=== PATIENT | female | born 1955 | race Caucasian/White ===

== ENCOUNTER 2017-01-11 09:08 | Emergency (ER) | payer OTHER ==
[2017-01-11 10:12] VITALS: BP 122/72
--- NOTE | 2017-01-11 10:49 | UC ---
Throat Pain/Nasal Alfonso HPI - HPI Summary HPI Summary: FIVE DAYS OF SINUS CONGESTION FACIAL PRESSURE, COUGH FATIGUE CHILLS - History of Current Complaint Chief Complaint: UCRespiratory Stated Complaint: CONGESTION CHILLS Time Seen by Provider: 01/11/17 10:29 Hx Obtained From: Patient Hx Last Menstrual Period: n /a Onset/Duration: Gradual Onset, Lasting Days, Worse Since - PROGRESSIVE Severity: Moderate Cough: Productive Associated Signs & Symptoms: Positive: Hoarseness, Sinus Discomfort, Nasal Discharge, Fever - Epiglottits Risk Factors Epiglottis Risk Factors: Negative - Allergies/Home Medications Allergies/Adverse Reactions: Allergies Allergy/AdvReac Type Severity Reaction Status Date / Time Cephalexin [From Keflex] Allergy Rash Verified 01/11/17 10:00 Home Medications: Home Medications Aspirin [Aspirin 81 MG TAB] 81 mg PO DAILY 01/11/17 [History Confirmed 01/11/17] Dextromethorphan-Phenylephrine [Robitussin Cold+Flu Dayti] 1 cap PO PRN [History] Fanlxjzicrxkb-Gw-SZ W/ APAP [Delsym Cough + Cold D... 3-42-199-325 mg/10Ml] 1 liq PO Q4H PRN 01/11/17 [History Confirmed 01/11/17] PMH/Surg Hx/FS Hx/Imm Hx Previously Healthy: Yes Cardiovascular History Of: Reports: Hypertension Cancer History Of: Denies: Breast Cancer - Surgical History Surgical History: Yes Surgery Procedure, Year, and Place: TONSILECTOMY, ABLASION TREATMENT TO BOTH LEGS, HERNIA REPAIR, LUMPECTOMY RT BREAST, HYSTERECTOMY, 2 C-SECTIONS. knee replacement 2014 - Family History Known Family History: Positive: Respiratory Disease - PARENTS SMOKERS, Other - MOTHER ESOPHAGEAL CANCER - Social History Occupation: Employed Full-time Lives: With Family Alcohol Use: None Substance Use Type: None Smoking Status (MU): Former Smoker When Did the Patient Quit Smoking/Using Tobacco: 2004 - Immunization History Most Recent Influenza Vaccination: 2016-fall Most Recent Tetanus Shot: unknown Review of Systems Constitutional: Chills, Fatigue Skin: Negative Eyes: Negative ENT: Sore Throat, Nasal Discharge Respiratory: Cough Cardiovascular: Negative Gastrointestinal: Negative Genitourinary: Negative Motor: Negative Neurovascular: Negative Musculoskeletal: Negative Neurological: Negative Psychological: Negative All Other Systems Reviewed And Are Negative: Yes Physical Exam Triage Information Reviewed: Yes Appearance: Well-Appearing, No Pain Distress, Well-Nourished Vital Signs: Initial Vital Signs Temp 98.8 F 01/11/17 10:03 Pulse 60 01/11/17 10:03 Resp 16 01/11/17 10:03 BP 122/72 01/11/17 10:03 Pulse Ox 99 01/11/17 10:03 Vital Signs Reviewed: Yes Eye Exam: Normal ENT: Positive: Hearing grossly normal, Pharynx normal, Nasal congestion, TM bulging, TM dull Dental Exam: Normal Neck exam: Normal Neck: Positive: Supple, Nontender Respiratory Exam: Other - COUGH Respiratory: Positive: Chest non-tender, Lungs clear, Normal breath sounds, No respiratory distress, No accessory muscle use Cardiovascular Exam: Normal Cardiovascular: Positive: RRR, No Murmur, Pulses Normal, Brisk Capillary Refill Abdominal Exam: Normal Abdomen Description: Positive: Nontender, No Organomegaly Musculoskeletal Exam: Normal Musculoskeletal: Positive: Strength Intact, ROM Intact Neurological Exam: Normal Psychological Exam: Normal Psychological: Positive: Normal Response To Family Skin Exam: Normal Throat Pain/Nasal Course/Dx - Course Course Of Treatment: TERI HAS TAKEN AMOXICILLIN WITHOUT ANY REACTIONS IN PAST - Differential Dx/Diagnosis Differential Diagnosis/HQI/PQRI: Otitis Media, Pharyngitis, Sinusitis, Tonsillitis, URI Provider Diagnoses: SINUSITIS Discharge - Discharge Plan Condition: Stable Disposition: HOME Prescriptions: Amoxicillin/Clavulanate TAB* [Augmentin TAB 875*] 875 mg PO BID #20 tab Benzonatate CAP* [Tessalon 100 MG CAP*] 100 mg PO TID PRN #15 cap PRN Reason: Cough Fluconazole [Diflucan 150 MG (NF)] 150 mg PO ONCE #1 tab Patient Education Materials: Sinusitis (ED) Forms: *Work Release Referrals: Monica Young MD [Primary Care Provider] -
== END 2017-01-11 10:51 | disposition home or self-care (01) ==
LOC: UCCORT 09:08
DX: J32.9 Chronic sinusitis, unspecified (principal); I10 Essential (primary) hypertension; Z88.1 Allergy status to other antibiotic agents; Z96.659 Presence of unspecified artificial knee joint; Z87.891 Personal history of nicotine dependence
CPT/HCPCS: 99212; G0463

== ENCOUNTER 2017-11-11 10:34 | Emergency (ER) | payer BC, OTHER ==
[2017-11-11 13:45] VITALS: BP 136/72
--- NOTE | 2017-11-11 14:12 | UC ---
FLU HPI - HPI Summary HPI Summary: Pt c/o sudden onset of fever, chills, malaise, cough, SOB with exertion X 2 days. - History of Current Complaint Chief Complaint: UCGeneralIllness Stated Complaint: FLU SYMPTOMS Time Seen by Provider: 11/11/17 13:29 Hx Obtained From: Patient Hx Last Menstrual Period: n /a ?: No Onset/Duration: Sudden Onset, Lasting Days, Still Present Severity Currently: Mild Severity Initially: Moderate Pain Intensity: 9 Associated Signs & Symptoms: Positive: Fever, Myalgia, Cough, Nasal Congestion Related Hx: Possible Flu/Infectious Exposure - Allergy/Home Medications Allergies/Adverse Reactions: Allergies Allergy/AdvReac Type Severity Reaction Status Date / Time MS Cephalexin [From Keflex] Allergy Rash Verified 11/11/17 13:41 Home Medications: Home Medications Rheumatoid Arthritis Medicatio 1 tab BID 11/11/17 [History Confirmed 11/11/17] PMH/Surg Hx/FS Hx/Imm Hx Previously Healthy: Yes Cardiovascular History: Cardiac Disease - Surgical History Surgical History: Yes Surgery Procedure, Year, and Place: TONSILECTOMY, ABLASION TREATMENT TO BOTH LEGS, HERNIA REPAIR, LUMPECTOMY RT BREAST, HYSTERECTOMY, 2 C-SECTIONS. knee replacement 2014 - Family History Known Family History: Positive: Respiratory Disease - PARENTS SMOKERS, Other - MOTHER ESOPHAGEAL CANCER - Social History Occupation: Retired Lives: With Family Alcohol Use: None Substance Use Type: None Smoking Status (MU): Former Smoker Have You Smoked in the Last Year: No - history of smoking for decades When Did the Patient Quit Smoking/Using Tobacco: 2004 - Immunization History Most Recent Influenza Vaccination: 2016-fall Most Recent Tetanus Shot: unknown Review of Systems Constitutional: Fever, Chills, Fatigue Skin: Negative Eyes: Negative ENT: Sore Throat Respiratory: Shortness Of Breath, Cough Cardiovascular: Negative Gastrointestinal: Negative Genitourinary: Negative Motor: Negative Neurovascular: Negative Musculoskeletal: Myalgia Neurological: Negative Psychological: Negative Is Patient Immunocompromised?: No All Other Systems Reviewed And Are Negative: Yes Physical Exam Triage Information Reviewed: Yes Appearance: Ill-Appearing Vital Signs: Initial Vital Signs Temp 98.7 F 11/11/17 13:36 Pulse 72 11/11/17 13:36 Resp 17 11/11/17 13:36 BP 136/72 11/11/17 13:36 Pulse Ox 96 11/11/17 13:36 Vital Signs Reviewed: Yes Eye Exam: Normal ENT Exam: Other ENT: Positive: Nasal congestion Dental Exam: Normal Neck exam: Normal Respiratory Exam: Other Respiratory: Positive: Decreased breath sounds Cardiovascular Exam: Normal Musculoskeletal Exam: Normal Neurological Exam: Normal Psychological Exam: Normal Skin Exam: Normal Diagnostics - Laboratory Diagnostic Studies Completed/Ordered: rapid flu influenza B positive Flu Course/Dx - Differential Dx/Diagnosis Differential Diagnosis/HQI/PQRI: Bronchitis, Influenza, Pneumonia Provider Diagnoses: INfluenza B. Pneumonia Discharge - Discharge Plan Condition: Stable Disposition: HOME Prescriptions: Azithromycin TAB* [Zithromax TAB (Z-TEA) 250 mg #6 tabs] 2 tab PO .TODAY, THEN 1 DAILY #1 tea Benzonatate CAP* [Tessalon 100 MG CAP*] 100 mg PO Q8H PRN #30 cap PRN Reason: Cough methylPREDNISolone TAB* [Medrol TAB*] 4 - 8 mg PO .SEE TEA #1 tea Oseltamivir CAP* [Tamiflu CAP*] 75 mg PO Q12H #10 cap Patient Education Materials: Influenza (ED), Pneumonia (ED) Forms: *Work Release Referrals: Monica Young MD [Primary Care Provider] - If Needed
== END 2017-11-11 14:22 | disposition home or self-care (01) ==
LOC: UCCORT 10:34
DX: J10.1 Influenza due to other identified influenza virus with other respiratory manifestations (principal); J18.9 Pneumonia, unspecified organism; Z87.891 Personal history of nicotine dependence
CPT/HCPCS: 87502; 99212; G0463

== ENCOUNTER 2018-05-17 09:46 | Emergency (ER) | payer BC ==
--- OUTSIDE RECORDS SUMMARY | 2018-05-17 10:22 | XMS REPORT ---
:1955 External Reference #:[id number] Author Organization [facility] Address [address], [address] [place] [address] Phone [phone] Care Team Providers Name Role Phone Monica Young MD Care Team Information Carbon Cleaner Unavailable Monica Young MD Primary Care Physician Unavailable Payers Type Date Identification Numbers Payment Provider Subscriber Commercial Policy Number: [id number] [facility] Becca Duffy PayID: [id number] [address] [address] [place] [address] Commercial Expires: 2017 Policy Number: [place] Medicaid Becca Duffy [id number] PayID: [id number] [address] [place] [address] Problems Date Description Provider Status Onset: 05/19/2015 Mixed hyperlipidemia Monica Young MD Active Onset: 05/19/2015 Rheumatoid arthritis Monica Young MD Active Onset: 05/19/2015 Benign essential hypertension Monica Young MD Active Onset: 08/05/2015 Essential hypertension Monica Young MD Resolved Resolved: 12/24/2015 Onset: 08/05/2015 Hyperlipidemia screening Monica Young MD Resolved Resolved: 12/24/2015 Family History Date Family Member(s) Problem(s) Comments Father due to lymphoma () Father Alcoholism Mother due to Esophagus Cancer () Mother Alcoholism Children 2 First Daughter Drug Addiction Second Daughter Alcoholism Siblings 1 Social History Type Date Description Comments Marital Status Single Lives With Significant Other 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 Cigarette Use Former Cigarette Smoker 3/4 ppd x 35 yrs, quit at age 45 ETOH Use Denies alcohol use Smoking Patient is a former smoker Allergies, Adverse Reactions, Alerts Date Description Reaction Status Severity Comments 05/19/2015 Keflex active Medications Medication Date Status Form Strength Qnty SIG Indications Ordering Provider Prednisolone 04/01 Active Suspension 1% 5ml 1 drop H25.813 Chintan De La O Acetate /2017 left eye four times daily for four weeks; please begin after surgery Aleve 04/25 Active Tablets 220mg 1 by [facility] mouth Clune, MARINE MECHANIC every day as needed Proair HFA 12/23 Active Aerosol 108(90Bas 17gm inhale R05 [facility] e) two Clune, MARINE MECHANIC mcg/Act puffs by mouth every 4 hours as needed Calcium + D3 08/05 Active Tablets 600-200mg 2 po qd -Unit MD Hector Vitamin D3 Super 08/05 Active Tablets 2000Unit 1 by /2014 mouth MD Hector every day One Daily For 08/05 Active Tablets 1 po qd MD Hector Amlodipine 08/05 Active Tablets 10mg 30tab Take One Besylate s Tablet MD Hector By Mouth Every Day Lisinopril 03/26 Active Tablets 20mg 30tab Take One s Tablet MD Hector By Mouth Every Day Xeljanz Active Tablets 5mg Tobar, /0000 Alvaro Calcitonin Active Solution 200Unit/A instill Unknown ([place]) /0000 ct 1 spray in alternat ing nostrils daily *refrige rate until usedis card & replace 35 days after opening Turmeric Active Capsules 450mg 1200mg Unknown /0000 daily Ofloxacin 04/01 Hx Solution 0.3% 1unit 1 drop H25.813 Chintan De La O (Ophthalmic) /2017 s left eye MD Clotilde oneal 04/23 times daily for 10 days beginnin g three days before surgery Diclofenac 04/01 Hx Solution 0.1% 1unit 1 drop H25.813 Chintan De La O Sodium /2017 s left eye MD Clotilde oneal 04/23 times daily for 2 weeks beginnin g three days before operatio n Ketorolac 04/01 Hx Solution 0.5% 5ml 1 drop H25.813 Chintan De La O Tromethamine /2017 left eye - 4 times 04/23 daily for 2 weeks; please begin 3 days prior to operatio n Azithromycin 11/11 Hx Tablets 250mg Ben-Haity /2017 , Connie Gil, FINANCIAL COMPLIANCE OFFICER - 11/16 Benzonatate 11/11 Hx Capsules 100mg Contreras-Haity /2017 , Connie Gil, FINANCIAL COMPLIANCE OFFICER - 11/21 Methylprednisolo 11/11 Hx TBPK 4mg Contreras-Gugerty ne , Connie Gil, FINANCIAL COMPLIANCE OFFICER - 11/16 Oseltamivir 11/11 Hx Capsules 75mg Contreras-Ling Phosphate , Connie Gil, FINANCIAL COMPLIANCE OFFICER - 11/16 Mucinex 12/23 Hx Tablets ER 600mg 60tab one tab J06.9 12HR s by mouth HEATHER Ternt - twice a 04/25 day needed nasal stuffine ss Miacalcin 05/05 Hx Solution 200Unit/A 11.1u Use 1 ct nits Mcnary In MD Hector - Alternat 02/15 Nostrils Once Daily Omeprazole 03/26 Hx Capsules 20mg 90cap Take One DR jelly Hart M.D. - By Mouth 02/15 Day Meloxicam Hx Tablets 15mg 1 by Unknown /0000 mouth - every 12/23 day food Sulfasalazine Hx Tablets DR 500mg 1 po bid Unknown /0000 - 07/20 Furosemide Hx Tablets 20mg 1 by Unknown /0000 mouth - every Aspirin Adult Hx Tablets DR 81mg 1 by Unknown Low Dose /0000 mouth - every Amlodipine Hx Tablets 5mg 90tab 1 by Monica Beskitty /0000 s mouth MD Hector - every Medications Administered in Office Medication Date Status Form Strength Qnty SIG Indications Ordering Provider PPD 04/25/ Administered Injection HEATHER Wang PPD 05/19/ Administered Injection Fanta Damian MD Immunizations CPT Code Status Date Vaccine Lot # [id number] Given 07/20/2017 Tdap injection [id number] 36671 Given 07/20/2017 Influenza Virus Vaccine, Quadrivalent, Slit Virus, [id number] Im Use 35498 Given 08/16/2016 Influenza Virus Vaccine Split Virus Use For Individual 3Yr Older [id number] Given 08/05/2015 Influenza Vaccine (Fluzone) Age 3 And Older [id number] Vital Signs Date Vital Result Comment 11/20/2017 BP Systolic 108 mmHg BP Diastolic 78 mmHg Body Temperature 97.8 F Heart Rate 79 /min Respiratory Rate 17 /min Height 60 inches 5'0" Weight 177.12 lb BMI (Body Mass Index) 34.6 kg/m2 BSA (Body Surface Area) 1.77 m2 [place] body weight in kilograms 45 O2 % BldC Oximetry 98 % 11/15/2017 BP Systolic Sitting Left Arm 124 mmHg BP Diastolic Sitting Left Arm 74 mmHg Body Temperature 98.5 F Heart Rate 68 /min Respiratory Rate 20 /min Height 60 inches 5'0" Weight 176.38 lb BMI (Body Mass Index) 34.4 kg/m2 BSA (Body Surface Area) 1.77 m2 [place] body weight in kilograms 45 O2 % BldC Oximetry 97 % 07/20/2017 BP Systolic Sitting Left Arm 122 mmHg BP Diastolic Sitting Left Arm 72 mmHg Heart Rate 78 /min Respiratory Rate 18 /min Height 60 inches 5'0" Weight 176.00 lb BMI (Body Mass Index) 34.4 kg/m2 BSA (Body Surface Area) 1.77 m2 [place] body weight in kilograms 45 04/25/2017 BP Systolic 108 mmHg BP Diastolic 60 mmHg Height 60 inches 5'0" Weight 174.00 lb BMI (Body Mass Index) 34.0 kg/m2 BSA (Body Surface Area) 1.76 m2 [place] body weight in kilograms 45 12/24/2015 BP Systolic 102 mmHg BP Diastolic 68 mmHg Body Temperature 98.6 F Heart Rate 76 /min Respiratory Rate 18 /min Weight 163.00 lb 08/05/2015 BP Systolic 112 mmHg BP Diastolic 68 mmHg Heart Rate 60 /min Respiratory Rate 20 /min Height 60 inches 5'0" Weight 161.12 lb BMI (Body Mass Index) 31.5 kg/m2 BSA (Body Surface Area) 1.70 m2 05/19/2015 BP Systolic 120 mmHg BP Diastolic 60 mmHg Heart Rate 88 /min Respiratory Rate 20 /min Height 61 inches 5'1" Weight 155.50 lb BMI (Body Mass Index) 29.4 kg/m2 BSA (Body Surface Area) 1.70 m2 Results Test Date Test Result H/L Range Note Rapid Influenza A & B 11/11/2017 Influenza A Molecular NEGATIVE Negative 1 Molecular Influenza B Molecular POSITIVE Negative CBC + Diff, Plat Count 10/30/2017 WBC Num Bld Auto 6.8 10*3/uL 4-10 RBC Num Bld Auto 4.07 10*6/uL Low 4.1-5.3 Hgb Bld-mCnc 12.6 g/dL 11.5-15.5 Hct VFr Bld Auto 37.2 % 36-45 MCV RBC Auto 91.5 fL 80-96 MCH RBC Qn Auto 31.1 pg 27-33 MCHC RBC Auto-mCnc 34.0 g/dL 32.0-36.0 RDW RBC Auto-Rto 13.3 % 11.5-14.5 Platelet Num Bld Auto 348 10*3/uL 150-400 Differential method Bld Automated Diff Neutrophils/leuk NFr Bld Auto 63 % 33-73 Lymphocytes/leuk NFr Bld Auto 24 % 13-52 Monocytes/leuk NFr Bld Auto 9 % 0-11 Eosinophil/leuk NFr Bld Auto 3 % 0-5 Basophils/leuk NFr Bld Auto 1 % 0-2 Neutrophils Num Bld Auto 4.38 10*3/uL 1.8-7.0 Lymphocytes Num Bld Auto 1.61 10*3/uL 1.2-4.0 Monocytes Num Bld Auto 0.63 10*3/uL 0-0.8 Eosinophil Num Bld Auto 0.19 10*3/uL 0-0.5 Basophils Num Bld Auto 0.04 10*3/uL 0-0.2 nRBC/100 WBC Bld Auto-Rto 0 /100{WBCs} 0-0 Laboratory test finding 10/30/2017 Alt/SGP 20 U/L <31 Ast/Sgo 22 U/L <32 Creatinine W/GFR 10/30/2017 Creat SerPl-mCnc 0.66 mg/dL 0.4-1.1 GFR/Bsa pred.non black SerPl MDRD-ArVRat >90 mL/min/1.73m2 >60 GFR/Bsa pred.black SerPl MDRD-ArVRat >90 mL/min/1.73m2 >60 Laboratory test finding 10/30/2017 Sed Rate - Esr 37 mm/hr High <30 Laboratory test finding 08/05/2015 Fit Hemoccult negative 1 Sales Development Specialist: [id number] Procedures Date CPT Code Description Status Comment 04/10/2018 26489 Extracapsular Cataract Completed Extraction W/Intraocular Lens 04/01/2018 40373 Ophthalmic Biometry By Partial Completed Coherence Interferometry W/Intra 02/14/2018 20257 Eye Exam New Patient Completed Comprehensive 05/24/2017 Mammogram Completed 04/25/2017 22250 Theraputic Or Diagnostic Completed Injection 09/08/2016 Colonoscopy Completed Document: 07/10/16 - Consult Gastrointestinal/Syam Document: 09/08/16 - Pathology/Biopsy Result 03/14/2016 Mammogram Completed 03/09/2015 Mammogram Completed 10/01/2013 Bone Mineral Density Test Completed 04/11/2011 20062 EKG Interpretation And Report Completed Only 06/05/2008 60601 Cardiolite Stress/Rest Spect Completed 06/05/2008 97258 Myocardial Wall Motion Completed 06/05/2008 94915 Ejection Fraction Completed 06/05/2008 01901 Stress Test Interpre And Report Completed Only 05/20/2008 54447 EKG-Tracing And Report Completed 09/02/2003 98240 Finance Charge Completed 03/02/2003 43865 Destruct-Skin Completed Tags/Lesions-Local Anesthesia- 2-14 Lesions 03/02/2003 24122 Destruct-Skin Completed Tags/Lesions-Local Anesthesia - First Lesion 02/10/2003 32883 Destruct-Skin Completed Tags/Lesions-Local Anesthesia- 2-14 Lesions 02/10/2003 85675 Destruct-Skin Completed Tags/Lesions-Local Anesthesia - First Lesion 06/10/2001 64231 Destruct-Skin Completed Tags/Lesions-Local Anesthesia - First Lesion Encounters Type Date Location Provider CPT E/M Dx Office Visit 11/20/2017 Family Medicine MINERVA Rodríguez 82148 Z09 9:45a Office Visit 11/15/2017 [facility] HEATHER Segov[place] 84719 J11.1 2:45p Office Visit 07/20/2017 HEATHER Gonzalez 47021 Z01.419 9:00a Z23 K42.9 L30.9 Office Visit 04/27/2017 2:30p [facility] HEATHER [place] 85925 Z11.1 Office Visit 04/25/2017 4:00p [facility] HEATHER [place] 01228 Z02.1 Z11.1 I10 Office Visit 12/24/2015 10:45a Family Medicine Kevyn Trent [facility] 81638 J06.9 R05 Office Visit 08/05/2015 3:00p [place] [address] Z00.00 I10 M05.79 Z13.220 Z23 Office Visit 05/21/2015 1:00p [place] [address] V74.1 Office Visit 05/19/2015 1:00p [place] [address] 714.0 401.1 V74.1 Office Visit 05/20/2008 1:30p Cardiology Office Christopher Aceves, [address]25 786.59 [place], [facility] 786.05 401.1 Plan of Care Future Appointment(s):05/09/2018 3:45 pm - Chintan De La O MD at Ophthalmology
[2018-05-17 10:35] VITALS: BP 114/68
--- NOTE | 2018-05-17 10:56 | UC ---
Ear Complaint HPI - HPI Summary HPI Summary: Pt presents with c/o gradual onset right ear pain and right sinus discomfort and nasal congestion. Pt reports right ear pain is intermittnet, nasal congestion constant and pressure and pain in right maxillary sinus is worsening X 1 week. - History of Current Complaint Chief Complaint: UCEar Stated Complaint: EAR PAIN Time Seen by Provider: 05/17/18 10:41 Hx Obtained From: Patient Hx Last Menstrual Period: n /a ?: No Onset/Duration: Gradual Onset, Lasting Weeks Severity Initially: Mild Severity Currently: Moderate Pain Intensity: 9 Alleviating Factors: Nothing Associated Signs/Symptoms: Positive: URI Symptoms Related History: Seasonal Allergies - Allergies/Home Medications Allergies/Adverse Reactions: Allergies Allergy/AdvReac Type Severity Reaction Status Date / Time cephalexin Allergy Rash Verified 05/17/18 10:28 Home Medications: Home Medications Ibuprofen TAB* [Advil TAB*] 400 mg PO Q6H PRN 05/17/18 [History Confirmed ] Methotrexate TAB* 4 tab PO WEEKLY 05/17/18 [History Confirmed 05/17/18] PMH/Surg Hx/FS Hx/Imm Hx Previously Healthy: Yes - Surgical History Surgical History: Yes Surgery Procedure, Year, and Place: TONSILECTOMY, ABLASION TREATMENT TO BOTH LEGS, HERNIA REPAIR, LUMPECTOMY RT BREAST, HYSTERECTOMY, 2 C-SECTIONS. knee replacement 2014. ganlion cyst left hand - Family History Known Family History: Positive: Respiratory Disease - PARENTS SMOKERS, Other - MOTHER ESOPHAGEAL CANCER - Social History Occupation: Retired Lives: With Family Alcohol Use: None Substance Use Type: None Smoking Status (MU): Former Smoker Have You Smoked in the Last Year: No - history of smoking for decades When Did the Patient Quit Smoking/Using Tobacco: 2004 - Immunization History Most Recent Influenza Vaccination: 2016-fall Most Recent Tetanus Shot: unknown Review of Systems Constitutional: Fatigue Skin: Negative Eyes: Negative ENT: Ear Ache, Sinus Congestion, Sinus Pain/Tenderness Respiratory: Cough Cardiovascular: Negative Gastrointestinal: Negative Genitourinary: Negative Motor: Negative Neurovascular: Negative Musculoskeletal: Negative Neurological: Negative Psychological: Negative Is Patient Immunocompromised?: No All Other Systems Reviewed And Are Negative: Yes Physical Exam Triage Information Reviewed: Yes Appearance: Well-Appearing Vital Signs: Initial Vital Signs Temp 98.3 F 05/17/18 10:21 Pulse 65 05/17/18 10:21 Resp 15 05/17/18 10:21 BP 114/68 05/17/18 10:21 Pulse Ox 98 05/17/18 10:21 Vital Signs Reviewed: Yes Eye Exam: Normal ENT: Positive: Nasal congestion, TM bulging - bilateral, Sinus tenderness - right maxillary Dental Exam: Normal Neck exam: Normal Respiratory: Positive: No respiratory distress Musculoskeletal Exam: Normal Neurological Exam: Normal Psychological Exam: Normal Skin Exam: Normal Ear Complaint Course/Dx - Differential Dx/Diagnosis Differential Diagnosis/HQI/PQRI: Otitis Media, URI, Other - allergic rhinitis Provider Diagnoses: allergic rhinitis. sinusitis Discharge - Sign-Out/Discharge Documenting (check all that apply): Patient Departure - Discharge Plan Condition: Stable Disposition: HOME Prescriptions: Azithromycin TAB* [Zithromax TAB (Z-TEA) 250 mg #6 tabs] 2 tab PO .TODAY, THEN 1 DAILY #1 tea Cetirizine* [ZyrTEC 10 MG TAB*] 10 mg PO DAILY #10 tab Chlorpheniramine/Dextromethorp [Coricidin Hbp Cough & Cold Tab] 1 each PO SEE INSTRUCTIONS #15 tablet Patient Education Materials: Sinusitis (ED), Allergic Rhinitis (ED) Referrals: Monica Young MD [Primary Care Provider] - If Needed - Billing Disposition and Condition Condition: STABLE Disposition: Home
== END 2018-05-17 11:10 | disposition home or self-care (01) ==
LOC: UCCORT 09:46
DX: J30.9 Allergic rhinitis, unspecified (principal); J32.9 Chronic sinusitis, unspecified; Z88.1 Allergy status to other antibiotic agents; Z87.891 Personal history of nicotine dependence
CPT/HCPCS: 99212; G0463

== ENCOUNTER 2018-09-26 12:35 | Emergency (ER) | payer BC ==
--- OUTSIDE RECORDS SUMMARY | 2018-09-26 13:42 | XMS REPORT ---
:1955 External Reference #:[id number] Author Organization [facility] Address [address], [address] [place] [address] Phone [phone] Care Team Providers Name Role Phone Monica Young MD Care Team Information Web Services Manager Unavailable Monica Young MD Primary Care Physician Unavailable Payers Type Date Identification Payment Provider Subscriber Numbers Workers Compensation Onset: Policy Number: [facility] Becca Lay 08/26/2018 [id number] Insurance Fund [place] PayID: [id number] [place] [id number] Medigap Part B Policy Number: [id number] [facility] Becca Duffy PayID: [id number] [address] [address] [place] [address] Commercial Expires: 09/30/2017 Policy Number: [employer] Becca Duffy [id number] PayID: [id number] [address] [place] [address] Problems Date Description Provider Status Onset: 05/19/2015 [...] Status Single Lives With Significant Other Occupation [employer] Cigarette Use Former Cigarette Smoker 3/4 ppd x 35 yrs, quit at age 45 ETOH Use Denies alcohol use Smoking Patient is a former smoker Allergies, Adverse Reactions, Alerts Date Description Reaction Status Severity Comments 05/19/2015 Keflex active Medications Medication Date Status Form Strength Qnty SIG Indications Ordering Provider Proair HFA 12/23 Active Aerosol 108(90Bas 17gm inhale two R05 Clune, /2015 e) puffs by Jenniferino mcg/Act mouth eigh, [employer] every 4 hours as needed Calcium + D3 08/05 Active Tablets 600-200mg 2 po qd Hector, -Unit MD Monica Vitamin D3 Super 08/05 Active Tablets 2000Unit 1 by mouth Hector every day MD Monica One Daily For 08/05 Active Tablets 1 po qd Hector, MD Monica Amlodipine 08/05 Active Tablets 10mg 30tab Take One Hector Besylate s Tablet By MD Monica Mouth Every Day Lisinopril 03/26 Active Tablets 20mg 30tab Take One Hector s Tablet By MD Monica Mouth Every Day Calcitonin Active Solution 200Unit/A 11.1m instill 1 Clune, (Lydia) /0000 ct l spray in Jenniferl alternatin eigh, [employer] g nostrils daily *refrigera te until usedisca rd & replace 35 days after opening Turmeric Active Capsules 450mg 1200mg Unknown /0000 daily Methotrexate Active Tablets 2.5mg Tobar, Sodium /0000 Alvaro HARRIS Ofloxacin 06/11 Hx Solution 0.3% 1unit 1 drop H25.811 Jairon (Ophthalmic) /2017 s right eye MD Chintan - four times 07/11 daily for 10 days beginning three days prior to the operation Prednisolone 06/11 Hx Suspension 1% 5ml 1 drop H25.811 Jairon Acetate /2017 right eye MD Chintan - four times 07/11 daily for four weeks; please begin after surgery Ketorolac 06/11 Hx Solution 0.5% 5ml 1 drop H25.811 Jairon Tromethamine /2017 operative MD Chintan - eye 4 07/11 times daily for 2 weeks; please begin 3 days prior to operation and continue for 2 weeks Ofloxacin 04/01 Hx Solution 0.3% 1unit 1 drop H25.813 Jairon (Ophthalmic) s left eye MD Chintan - four times 04/23 daily for 10 days beginning three days before surgery Prednisolone 04/01 Hx Suspension 1% 5ml 1 drop H25.813 Jairon, Acetate left eye MD Chintan - four times 06/10 daily for four weeks; please begin after surgery Diclofenac Sodium 04/01 Hx Solution 0.1% 1unit 1 drop H25.813 Jairon, s left eye MD Chintan - four times 04/23 daily for 2 weeks beginning three days before operation Ketorolac 04/01 Hx Solution 0.5% 5ml 1 drop H25.813 Jairon Tromethamine left eye 4 MD Chintan - times 04/23 daily for 2 weeks; please begin 3 days prior to operation Azithromycin 11/11 Hx Tablets 250mg Contreras-Gug erty, - Connie A., 11/16 Benzonatate 11/11 Hx Capsules 100mg Contreras-Gug erty, - Connie A., 11/21 Methylprednisolon 11/11 Hx TBPK 4mg Contreras-Gug e erty, - Connie A., 11/16 Oseltamivir 11/11 Hx Capsules 75mg Contreras-Gug Phosphate erty, - Connie A., 11/16 Aleve 04/25 Hx Tablets 220mg 1 by mouth nic every day Jenniferl - as needed eigh, [employer] 08/29 Mucinex 12/23 Hx Tablets ER 600mg 60tab one tab by J06.9 Miley 12HR s mouth Jenniferl - twice a eigh, [employer] 04/25 day as needed nasal stuffiness Miacalcin 05/05 Hx Solution 200Unit/A 11.1u Use 1 Hector, ct nits [place] In MD Monica - Alternatin 02/15 g Nostrils Once Daily Omeprazole 03/[address] 20mg 90cap Take One Tanner s Capsule By [place] M.D. 02/15 Every Day /2017 Meloxicam Hx Tablets 15mg 1 by mouth Unknown /0000 every day - c food 12/[address] 500mg 1 po bid Unknown /0000 - 07/20 Furosemide 00 Hx Tablets 20mg 1 by mouth Unknown /0000 every day - 08/05 Aspirin Adult Low 00/ Hx Tablets DR 81mg 1 by mouth Unknown Dose /0000 every day - 04/25 Amlodipine Hx Tablets 5mg 90tab 1 by mouth Cindi Youngylate /0000 s every day MD Monica - 08/05 Xeljanz Hx Tablets 5mg Tobar, /0000 Alvaro Mabry MD 06/11 Medications Administered in Office Medication Date Status Form Strength Qnty SIG Indications Ordering Provider PPD Administered Injection Clune, HEATHER Villarreal PPD Administered Injection Hector, Loni Anderson MD Immunizations CPT Code Status Date Vaccine Lot # [id number] Given 08/16/2018 Influenza Vaccine (Fluzone) Age 3 And Older [id number] Given 07/20/2017 Tdap injection [id number] 96011 Given 07/20/2017 Influenza Virus Vaccine, Quadrivalent, Slit Virus, [id number] Im Use 84028 Given 08/16/2016 Influenza Virus Vaccine Split Virus Use For Individual 3Yr Older [id number] Given 08/05/2015 Influenza Vaccine (Fluzone) Age 3 And Older [id number] Vital Signs Date Vital Result Comment 08/29/2018 BP Systolic Sitting Left Arm 116 mmHg BP Diastolic Sitting Left Arm 72 mmHg Heart Rate 72 /min Respiratory Rate 18 /min Height 60 inches 5'0" Weight 173.00 lb BMI (Body Mass Index) 33.8 kg/m2 BSA (Body Surface Area) 1.76 m2 Farner body weight in kilograms 45 11/20/2017 BP Systolic 108 mmHg BP Diastolic 78 mmHg Body Temperature 97.8 F Heart Rate 79 /min Respiratory Rate 17 /min Height 60 inches 5'0" Weight 177.12 lb BMI (Body Mass Index) 34.6 kg/m2 BSA (Body Surface Area) 1.77 m2 Farner body weight in kilograms 45 O2 % BldC Oximetry 98 % 11/15/2017 BP Systolic Sitting Left Arm 124 mmHg BP Diastolic Sitting Left Arm 74 mmHg Body Temperature 98.5 F Heart Rate 68 /min Respiratory Rate 20 /min Height 60 inches 5'0" Weight 176.38 lb BMI (Body Mass Index) 34.4 kg/m2 BSA (Body Surface Area) 1.77 m2 Farner body weight in kilograms 45 O2 % BldC Oximetry 97 % 07/20/2017 BP Systolic Sitting Left Arm 122 mmHg BP Diastolic Sitting Left Arm 72 mmHg Heart Rate 78 /min Respiratory Rate 18 /min Height 60 inches 5'0" Weight 176.00 lb BMI (Body Mass Index) 34.4 kg/m2 BSA (Body Surface Area) 1.77 m2 Farner body weight in kilograms 45 04/25/2017 BP Systolic 108 mmHg BP Diastolic 60 mmHg Height 60 inches 5'0" Weight 174.00 lb BMI (Body Mass Index) 34.0 kg/m2 BSA (Body Surface Area) 1.76 m2 Farner body weight in kilograms 45 12/24/2015 BP [...] Test Date Test Result H/L Range Note Urine Dipstick 08/29/2018 Ua Leuko - Negative Ua Nitrite - Negative Ua Urobilinogen - Low 0.2 - 1.0 E.U./dL Ua Protein - Negative Ua PH 6 Low 6.5-7.5 Ua Blood - Negative Ua Specific [place] 1.010 1.010-1.030 Ua Ketones - Negative Ua Bilirubin - Negative Ua Glucose - Negative Rapid Influenza A & B 11/11/2017 Influenza [...] test finding 08/05/2015 Fit Hemoccult negative 1 Coordinator Of Placement: [id number] Procedures Date CPT Code Description Status Comment 06/19/2018 17787 Extracapsular Cataract Completed Extraction W/Intraocular Lens 04/10/2018 32812 Extracapsular Cataract Completed Extraction W/Intraocular Lens 04/01/2018 06612 Ophthalmic Biometry By Partial Completed Coherence Interferometry W/Intra 02/14/2018 78890 Eye Exam New Patient Completed Comprehensive 05/24/2017 Mammogram Completed 04/25/2017 21700 Theraputic Or Diagnostic Completed Injection 09/08/2016 Colonoscopy Completed Document: 07/10/16 - Consult Gastrointestinal/Syam Document: 09/08/16 - Pathology/Biopsy Result 03/14/2016 Mammogram Completed 03/09/2015 Mammogram Completed 10/01/2013 Bone Mineral Density Test Completed 04/11/2011 45038 EKG Interpretation And Report Completed Only 06/05/2008 67485 Cardiolite Stress/Rest Spect Completed 06/05/2008 83290 Myocardial Wall Motion Completed 06/05/2008 84694 Ejection Fraction Completed 06/05/2008 64059 Stress Test Interpre And Report Completed Only 05/20/2008 48335 EKG-Tracing And Report Completed 09/02/2003 92279 Finance Charge Completed 03/02/2003 26760 Destruct-Skin Completed Tags/Lesions-Local Anesthesia- 2-14 Lesions 03/02/2003 89281 Destruct-Skin Completed Tags/Lesions-Local Anesthesia - First Lesion 02/10/2003 98197 Destruct-Skin Completed Tags/Lesions-Local Anesthesia- 2-14 Lesions 02/10/2003 78245 Destruct-Skin Completed Tags/Lesions-Local Anesthesia - First Lesion 06/10/2001 64715 Destruct-Skin Completed Tags/Lesions-Local Anesthesia - First Lesion Encounters Type Date Location Provider CPT E/M Dx Office Visit 08/29/2018 3:30p Family Kevyn Leavitt 11394 M25.561 [facility] S80.01xA W01.10xA Z12.31 Office Visit 11/20/2017 9:45[place] [address] Z09 Office Visit 11/15/2017 2:45p Family Kevyn Leavitt 27407 J11.1 [facility] Office Visit 07/20/2017 9:00a Kevyn Welch 00994 Z01.419 [employer] Z23 K42.9 L30.9 Office Visit 04/27/2017 2:30p Kevyn Welch FNP 01750 Z11.1 Office Visit 04/25/2017 4:00p Makayla WelchleighHEATHER 68861 Z02.1 Z11.1 I10 Office Visit 12/24/2015 10:45a [facility] Medicine Kevyn TrentHEATHER 15803 J06.9 R05 Office Visit 08/05/2015 3:00p [place] [address] Z00.00 I10 M05.79 Z13.220 Z23 Office Visit 05/21/2015 1:00p [facility] [place] [address] V74.1 Office Visit 05/19/2015 1:00p [facility] [place] [address] 714.0 401.1 V74.1 Office Visit 05/20/2008 1:30p Cardiology Office Christopher Aceves, 10257 786.59 M.DVi, [facility] 786.05 401.1 Plan of Care 08/29/2018 - Kevyn Trent, MAEGANPM25.561 Pain in right kneeComments:range of motion back to baselineminimal pain, not interfering with activityback to baseline - able to return to work without restrictionFollow up:WWE/CPE at convenience with PCP Monica Zuleta80.01xA Contusion of right knee, initial hatqclwhaQ67.10xA Fall same lev from slip/trip w strike agnst unsp obj, initZ12.31 Encntr screen mammogram for malignant neoplasm of breastNew Xrays: Mammography, Screening Bilateral MammogramFollow up:will schedule own appt - please place to do for Oct 03 to check for results
[2018-09-26 14:00] VITALS: BP 129/66
--- NOTE | 2018-09-26 14:03 | UC ---
Respiratory Complaint HPI - HPI Summary HPI Summary: 62 yo female presents with post nasal drip, sinus pain/pressure/congestion, and productive cough for the last 5 days. She has been taking mucinex with no relief. She is a former smoker. Denies fever, chills, sore throat, SOB, chest pain. - History of Current Complaint Chief Complaint: UCRespiratory Stated Complaint: CHEST CONGESTION Time Seen by Provider: 09/26/18 14:02 Hx Obtained From: Patient Hx Last Menstrual Period: n /a Onset/Duration: Gradual Onset Severity Initially: Mild Severity Currently: Moderate Pain Intensity: 6 Pain Scale Used: 0-10 Numeric Character: Cough: Productive - Allergies/Home Medications Allergies/Adverse Reactions: Allergies Allergy/AdvReac Type Severity Reaction Status Date / Time cephalexin Allergy Rash Verified 09/26/18 13:52 Home Medications: Home Medications Albuterol HFA INHALER* [Ventolin HFA Inhaler*] 2 puff INH Q4HR PRN 09/26/18 [ History Confirmed 09/26/18] Benzonatate 200 mg PO ONCE PRN 09/26/18 [History Confirmed 09/26/18] Calcitonin NASAL(NF) [Fortical(NR)] 1 spray INH DAILY 09/26/18 [History Confirmed 09/26/18] Folic Acid 1 mg PO DAILY 09/26/18 [History Confirmed 09/26/18] guaiFENesin [Mucinex] 1,200 mg PO ONCE PRN 09/26/18 [History Confirmed 09/26/18] PMH/Surg Hx/FS Hx/Imm Hx - Additional Past Medical History Additional PMH: RA Cardiovascular History: Hypertension - Surgical History Surgical History: Yes Surgery Procedure, Year, and Place: TONSILECTOMY, ABLASION TREATMENT TO BOTH LEGS, HERNIA REPAIR, LUMPECTOMY RT BREAST, HYSTERECTOMY, 2 C-SECTIONS. knee replacement 2014. ganlion cyst left hand. cataracts bilaterally - Family History Known Family History: Positive: Respiratory Disease - PARENTS SMOKERS, Other - MOTHER ESOPHAGEAL CANCER - Social History Lives: With Family Alcohol Use: None Substance Use Type: None Smoking Status (MU): Former Smoker Have You Smoked in the Last Year: No - history of smoking for decades When Did the Patient Quit Smoking/Using Tobacco: 2004 - Immunization History Most Recent Influenza Vaccination: 2016-fall Most Recent Tetanus Shot: unknown Review of Systems All Other Systems Reviewed And Are Negative: Yes Constitutional: Positive: Negative Skin: Positive: Negative Eyes: Positive: Negative ENT: Positive: Nasal Discharge, Sinus Congestion, Sinus Pain/Tenderness Respiratory: Positive: Cough Cardiovascular: Positive: Negative Gastrointestinal: Positive: Negative Neurovascular: Positive: Negative Neurological: Positive: Negative Psychological: Positive: Negative Physical Exam - Summary Physical Exam Summary: GENERAL: NAD. WDWN. No pain distress. SKIN: No rashes, sores, lesions, or open wounds. HEENT: Head: AT/NC Eyes: EOM intact. Conjunctiva clear without inflammation or discharge. Ears: Hearing grossly normal. TMs intact, no bulging, erythema, or edema. Nose: Nasal mucosa mildly swollen and erythematous with yellow/ green discharge. TTP maxillary and frontal sinus. Positive post nasal drip Throat: Posterior oropharynx without exudates, erythema, or tonsillar enlargement. Uvula midline. NECK: Supple. Nontender. No lymphadenopathy. CHEST: CTAB. No r/r/w. No accessory muscle use. Breathing comfortably and in no distress. CV: RRR. Without m/r/g. Pulses intact. NEURO: Alert. PSYCH: Age appropriate behavior. Triage Information Reviewed: Yes Vital Signs: Initial Vital Signs Temp 98.5 F 09/26/18 13:46 Pulse 67 09/26/18 13:46 Resp 18 09/26/18 13:46 BP 129/66 09/26/18 13:46 Pulse Ox 100 09/26/18 13:46 Vital Signs Reviewed: Yes Diagnostic Evaluation - Laboratory O2 Sat by Pulse Oximetry: 100 Respiratory Course/Dx - Course Course Of Treatment: She is requesting anbx at this time. Discussed bacterial vs viral infection, however she is immunocompromised due to her methotrexate. Rx for zpak and flonase. - Differential Dx/Diagnosis Provider Diagnosis: Sinusitis Discharge - Sign-Out/Discharge Documenting (check all that apply): Patient Departure All imaging exams completed and their final reports reviewed: No Studies - Discharge Plan Condition: Stable Disposition: HOME Prescriptions: Azithromycin TAB* [Zithromax TAB (Z-TEA) 250 mg #6 tabs] 2 tab PO .TODAY, THEN 1 DAILY #1 tea Fluticasone NASAL SPRAY 50MCG* [Flonase NASAL SPRAY 50MCG*] 2 spray BOTH NARES DAILY #1 btl Patient Education Materials: Upper Respiratory Infection (ED) Referrals: Monica Young MD [Primary Care Provider] - Additional Instructions: If you develop a fever, shortness of breath, chest pain, new or worsening symptoms - please call your PCP or go to the ED. - Billing Disposition and Condition Condition: STABLE Disposition: Home - Attestation Statements Provider Attestation: I was available for consult. This patient was seen by the FREYA. The patient was not presented to, seen by, or examined by me. -Bridger
== END 2018-09-26 14:18 | disposition home or self-care (01) ==
LOC: UCEAST 12:35
DX: J32.9 Chronic sinusitis, unspecified (principal); Z88.1 Allergy status to other antibiotic agents; I10 Essential (primary) hypertension; Z87.891 Personal history of nicotine dependence
CPT/HCPCS: 99212; G0463

== ENCOUNTER 2019-10-28 12:42 | Emergency (ER) | payer BC ==
[2019-10-28 13:52] VITALS: BP 111/70
--- NOTE | 2019-10-28 14:12 | UC ---
Throat Pain/Nasal Alfonso HPI - HPI Summary HPI Summary: Patient is a 64yo female presenting with nasal congestion and intermittent L ear pressure x1-2 weeks. PAtient states symptoms worsened over the weekend with PND, chills, and body aches. Notes mild cough. Denies sob and wheezing. Denies fever. Normal appetite. Using flonase for congestion relief. - History of Current Complaint Chief Complaint: UCRespiratory Stated Complaint: HEAD CONGESTION Hx Obtained From: Patient Hx Last Menstrual Period: n /a Pain Intensity: 0 - Allergies/Home Medications Allergies/Adverse Reactions: Allergies Allergy/AdvReac Type Severity Reaction Status Date / Time cephalexin Allergy Rash Verified 01/08/19 17:44 Home Medications: Home Medications Ascorbic Acid TAB* [Vitamin C TAB*] 500 mg PO DAILY 10/28/19 [History Confirmed 10/28/19] Cholecalciferol TAB* [Vitamin D TAB*] 1,000 unit PO DAILY 10/28/19 [History Confirmed 10/28/19] PMH/Surg Hx/FS Hx/Imm Hx - Surgical History Surgical History: Yes Surgery Procedure, Year, and Place: TONSILECTOMY, ABLASION TREATMENT TO BOTH LEGS, HERNIA REPAIR, LUMPECTOMY RT BREAST, HYSTERECTOMY, 2 C-SECTIONS. knee replacement 2014. ganlion cyst left hand. cataracts bilaterally - Family History Known Family History: Positive: Respiratory Disease - PARENTS SMOKERS, Other - MOTHER ESOPHAGEAL CANCER - Social History Alcohol Use: None Substance Use Type: None Smoking Status (MU): Former Smoker Have You Smoked in the Last Year: No - history of smoking for decades When Did the Patient Quit Smoking/Using Tobacco: 2003 - Immunization History Most Recent Influenza Vaccination: 2015-fall Most Recent Tetanus Shot: unknown Vaccination Up to Date: No Review of Systems All Other Systems Reviewed And Are Negative: Yes Constitutional: Positive: Chills ENT: Positive: Ear Ache - left, Nasal Discharge - PND, Sinus Congestion. Negative: Sore Throat Respiratory: Positive: Cough - mild. Negative: Shortness Of Breath Cardiovascular: Positive: Negative Gastrointestinal: Positive: Negative Musculoskeletal: Positive: Myalgia Neurological: Positive: Negative Physical Exam - Summary Physical Exam Summary: Vital Signs Reviewed: Yes A+Ox3, no distress Eyes: Conjunctiva Clear ENT: Hearing grossly normal, TM x 2 clear, moist, uvula midline, +PND, no exudate, no erythema Neck: Positive: Supple Respiratory: Positive: No respiratory distress, No accessory muscle use + CTA throughout no w/r Cardiovascular: RRR nl s1, s2 no m/r Musculoskeletal Exam: CARSON x 4 without difficulty Neurological: Positive: Alert Psychological: Positive: age appropriate behavior Skin: Positive: no rash, no ecchymosis Vital Signs: Initial Vital Signs Temp 97.7 F 10/28/19 13:48 Pulse 63 10/28/19 13:48 Resp 17 10/28/19 13:48 BP 111/70 10/28/19 13:48 Pulse Ox 100 10/28/19 13:48 Lab Results 10/28/19 Range/Units 14:12 Influenza A (Rapid) Negative (Negative) Influenza B (Rapid) Negative (Negative) Throat Pain/Nasal Course/Dx - Course Course Of Treatment: Negative rapid flu. I treated patient with Augmentin for sinusitis and instructed to continue with symptomatic treatment. Instructed to follow up with pcp if symptoms worsen or persist. Patient voiced understanding and agreed with treatment plan. - Differential Dx/Diagnosis Provider Diagnosis: Sinusitis, Post-nasal drainage Discharge ED - Sign-Out/Discharge Documenting (check all that apply): Patient Departure All imaging exams completed and their final reports reviewed: No Studies - Discharge Plan Condition: Stable Disposition: HOME Prescriptions: Amoxicillin/Clavulanate TAB* [Augmentin TAB 875*] 875 mg PO BID #10 tab Patient Education Materials: Sinusitis (ED) Referrals: Monica Young MD [Primary Care Provider] - If Needed Additional Instructions: Your flu test was negative today. Take Augmentin for treatment of your sinusitis. You may also continue use of Flonase for symptomatic relief. Follow up with your primary care provider if symptoms do not resolve within 5-7 days. - Billing Disposition and Condition Condition: STABLE Disposition: Home
[2019-10-28 14:24] LABS: Influenza A Molecular Negative (Negative); Influenza B Molecular Negative (Negative)
== END 2019-10-28 14:40 | disposition home or self-care (01) ==
LOC: UCCORT 12:42
DX: J32.9 Chronic sinusitis, unspecified (principal); H92.02 Otalgia, left ear; R05 Cough; M79.10 Myalgia, unspecified site; Z88.1 Allergy status to other antibiotic agents; Z87.891 Personal history of nicotine dependence
CPT/HCPCS: 99212; G0463